=== PATIENT | female | born 1955 | race Caucasian/White ===

== ENCOUNTER 2021-09-01 07:36 | Emergency (ER) | payer MEDICARE ==
[~2021-09-01] VITALS: Ht 157.5 cm; Wt 58.2 kg
[2021-09-01] MEDS ORDERED: REMICADE100 MG/VIA (07:59)
[2021-09-01] MEDS ORDERED: ACETAMINOPHEN500 MG PO (08:10)
[2021-09-01] MEDS ORDERED: IBUPROFEN IB200 MG PO (08:10)
[2021-09-01] MEDS ORDERED: IBUPROFEN 600 MG TAB PO ONE (08:15)
[2021-09-01] MEDS ORDERED: IBUPROFEN 600 MG TAB ONE (08:17)
== END 2021-09-01 09:02 | disposition home or self-care (01) ==
LOC: FSED 08:04
DX: M25.551 Pain in right hip (principal); M06.9 Rheumatoid arthritis, unspecified
CPT/HCPCS: 74176; 81003; 99283